=== PATIENT | male | born 1970 | race Caucasian/White ===

== ENCOUNTER 2017-04-06 16:48 | Inpatient (IN) | payer MEDICARE, MEDICAID ==
[2017-04-06] VITALS (8 sets, daily range): BP systolic 121–131; BP diastolic 78–92
[~2017-04-06] VITALS: Ht 177.8 cm; Wt 113.2 kg
[~2017-04-06 16:48] MED LIST: AMOX-291 PO; ASPI-515 PO; ATOR-2 PO; CLOP75TA52 PO; FLUO20CA19 PO; GABA600T2 PO; GLIM1TAB2 PO; HYDR-3307 PO; INSU100V8 SQ; LISI-167 PO; LORA10TA72 PO; METF10002 PO; NITR1PAT26 TD; OMEP40CA6 PO
[2017-04-06] MEDS ORDERED: DIAZ10TA4 PO (17:24)
[2017-04-06] MEDS ORDERED: OMEP-110 PO (17:24)
[2017-04-06] MEDS ORDERED: METH500T97 PO (17:24)
[2017-04-06] MEDS ORDERED: [UNRECOGNIZED DRUG - OTHER] PO (17:24)
[2017-04-06] MEDS ORDERED: NITR0.4T SL (17:24)
[2017-04-06] MEDS ORDERED: PREG150C PO (17:24)
[2017-04-06] MEDS ORDERED: LOSA25TA5 PO (17:24)
[2017-04-06] MEDS ORDERED: FENO160T PO (17:24)
[2017-04-06] MEDS ORDERED: INSU100V8 SQ (17:24)
[2017-04-06] MEDS ORDERED: DULO30CA2 PO (17:24)
[2017-04-06 17:35] LABS: BASOPHILS # (AUTO) 0.08 x10^3/uL (0-0.1); BASOPHILS % (AUTO) 1 % (0-1); EOSINOPHILS # (AUTO) 0.17 x10^3/uL (0-0.4); EOSINOPHILS % (AUTO) 2 % (1-7); LYMPHOCYTES # (AUTO) 2.89 x10^3/uL (1-3.4); LYMPHOCYTES % (AUTO) 31 % (22-44); MD NO; MEAN CORPUSCULAR HEMOGLOBIN 30.4 pg (27.5-34.5); MEAN CORPUSCULAR HGB CONC 33.7 g/dL (33.2-36.2); MEAN CORPUSCULAR VOLUME 90.1 fL (81-97); MEAN PLATELET VOLUME 8.3 fL (7.4-10.4); MONOCYTES # (AUTO) 0.79 x10^3/uL (0.2-0.8); MONOCYTES % (AUTO) 8 % (2-9); NEUTROPHILS # (AUTO) 5.48 x10^3/uL (1.8-6.8); NEUTROPHILS % (AUTO) 58 % (42-75); PLATELET COUNT 283 x10^3/uL (130-400); RED BLOOD COUNT 5.28 x10^6/uL (4.38-5.82); RED CELL DISTRIBUTION WIDTH 13.5 % (9.4-14.8)
[2017-04-06 17:45] LABS: INTERNATIONAL NORMALIZED RATIO 0.98 (0.93-1.1); PROTHROMBIN TIME 10.2 Seconds (9.6-11.5)
[2017-04-06] MEDS: PLEASE ENTER HEIGHT AND WEIGHT MC SCH ×2 (17:54→18:35)
[2017-04-06] MEDS ORDERED: ALTEPLASE 81 MG in VIAL 1 EACH IV ONE (18:00)
[2017-04-06] MEDS ORDERED: ALTEPLASE 9 MG in SYRINGE 1 EA IV ONE (18:00)
[2017-04-06] MEDS ORDERED: SODIUM CHLORIDE FLUSH 10ML SYR IVF PRN (19:00)
[2017-04-06] MEDS ORDERED: LABETALOL 5MG/ML, 20ML IV PRN (19:30)
[2017-04-06] MEDS ORDERED: NICOTINE 21 MG/24 HR PATCH.TD24 TD SCH (19:30)
[2017-04-06] MEDS ORDERED: BISACODYL 10 MG SUPP PR PRN (19:30)
[2017-04-06] MEDS ORDERED: ONDANSETRON 2MG/ML, 2ML IVPush PRN (19:30)
[2017-04-06] MEDS ORDERED: PROMETHAZINE 25 MG/ML, 1ML IM PRN (19:30)
[2017-04-06 20:07] LABS: TROPONIN I < 0.015 ng/mL (0.000-0.045)
[2017-04-06 20:12] LABS: HEMOGLOBIN A1C 6.6 % (4.2-6.3)
[2017-04-06] MEDS ORDERED: LACTULOSE 10 GM/15 ML UDC PO SCH (21:00)
[2017-04-06] MEDS: FAMOTIDINE 20 MG/2 ML IV SCH (21:18)
[2017-04-06] MEDS: NS + 20MEQ KCL 1,000 ML IV SCH (21:18)
[2017-04-06] MEDS ORDERED: MAGNESIUM SULFATE PMX 2GM/50ML 50 ML IV ONE (21:30)
[2017-04-07] VITALS (19 sets, daily range): BP systolic 105–140; BP diastolic 52–85
[2017-04-07 02:16] LABS: TROPONIN I < 0.015 ng/mL (0.000-0.045)
[2017-04-07] MEDS: FAMOTIDINE 20 MG/2 ML IV SCH ×2 (03:05→11:47)
[2017-04-07 04:33] LABS: HCT (SEDRATE) 44.2 % (39.2-51.8)
[2017-04-07 04:37] LABS: BASOPHILS # (AUTO) 0.06 x10^3/uL (0-0.1); BASOPHILS % (AUTO) 1 % (0-1); EOSINOPHILS # (AUTO) 0.18 x10^3/uL (0-0.4); EOSINOPHILS % (AUTO) 2 % (1-7); LYMPHOCYTES # (AUTO) 3.22 x10^3/uL (1-3.4); LYMPHOCYTES % (AUTO) 34 % (22-44); MD NO; MEAN CORPUSCULAR HEMOGLOBIN 30.4 pg (27.5-34.5); MEAN CORPUSCULAR HGB CONC 33.8 g/dL (33.2-36.2); MEAN PLATELET VOLUME 8.4 fL (7.4-10.4); MONOCYTES # (AUTO) 0.85 x10^3/uL (0.2-0.8); MONOCYTES % (AUTO) 9 % (2-9); NEUTROPHILS # (AUTO) 5.05 x10^3/uL (1.8-6.8); NEUTROPHILS % (AUTO) 54 % (42-75); PLATELET COUNT 254 x10^3/uL (130-400); RED BLOOD COUNT 4.93 x10^6/uL (4.38-5.82); RED CELL DISTRIBUTION WIDTH 13.3 % (9.4-14.8)
[2017-04-07 04:44] LABS: CHLORIDE 109 mmol/L (98-107)
[2017-04-07 04:51] LABS: ALANINE AMINOTRANSFERASE 37 U/L (12-78); ALBUMIN 3.1 g/dL (3.4-5.0); ALKALINE PHOSPHATASE 55 U/L (45-117); ANION GAP 6 mmol/L (5-15); BILIRUBIN,TOTAL 0.4 mg/dL (0.2-1.0); C-REACTIVE PROTEIN, QUANT 0.08 mg/dL (0.02-0.49); CHOL/HDL RATIO 3.8; CHOLESTEROL, TOTAL 98 mg/dL (140-239); HDL CHOLESTEROL (DIRECT) 26 mg/dL (40-60); TOTAL PROTEIN 6.5 g/dL (6.4-8.2); TRIGLYCERIDES 96 mg/dL (50-200); VLDL CHOLESTEROL 19 mg/dL (0-25)
[2017-04-07 04:52] LABS: HDL CHOL % 27 % (26-37); LDL CHOLESTEROL,CALCULATED 53 mg/dL (54-169)
[2017-04-07] MEDS: NS + 20MEQ KCL 1,000 ML IV SCH (05:02)
== END 2017-04-07 16:05 | disposition left against medical advice (07) | DRG 61 ==
LOC: ED 18:56 → EDIP 19:00 → ICU 20:20
PROVIDERS: ADMIT Family Medicine; ATTEND Family Medicine
DX: I63.9 Cerebral infarction, unspecified (principal); G93.40 Encephalopathy, unspecified; I11.0 Hypertensive heart disease with heart failure; E83.42 Hypomagnesemia; I50.9 Heart failure, unspecified; G45.9 Transient cerebral ischemic attack, unspecified; I69.354 Hemiplegia and hemiparesis following cerebral infarction affecting left non-dominant side; B19.20 Unspecified viral hepatitis C without hepatic coma; E11.9 Type 2 diabetes mellitus without complications; F15.10 Other stimulant abuse, uncomplicated; F17.210 Nicotine dependence, cigarettes, uncomplicated; I25.10 Atherosclerotic heart disease of native coronary artery without angina pectoris; I25.2 Old myocardial infarction; Z79.02 Long term (current) use of antithrombotics/antiplatelets; Z79.4 Long term (current) use of insulin; Z95.5 Presence of coronary angioplasty implant and graft; Z80.9 Family history of malignant neoplasm, unspecified; Z83.3 Family history of diabetes mellitus
CPT/HCPCS: 36415; 70450; 70551; 80047; 80053; 80061; 83036; 83735; 84100; 84443; 84484; 85025; 85610; 85651; 85730; 86140; 87081; 93005; 93306; 93880; 96365; J2997; J3480; J3475; S0028

== ENCOUNTER 2018-04-20 20:18 | Emergency (ER) | payer MEDICARE, MEDICAID ==
[~2018-04-20] VITALS: Ht 172.7 cm; Wt 108.0 kg
[~2018-04-20 20:18] MED LIST changes: +DIAZ10TA4 PO; +DULO30CA2 PO; +FENO160T PO; -GABA600T2 PO; +GABA600T7 PO; +LOSA25TA25 PO; +METH500T97 PO; +NITR0.4T SL; +OMEP-110 PO; +PREG150C PO; +[UNRECOGNIZED DRUG - OTHER] PO
[2018-04-20] MEDS ORDERED: CARB200T4 PO (21:04)
[2018-04-20] MEDS ORDERED: GABA300C10 PO (21:04)
--- NOTE | 2018-04-20 21:04 | NUR ---
THIS IS A 47 YO MALE WHO PRESENTS TO THE ER AFTER PT'S CAME HOME FROM WORK AT [employer] 1900 TO FIND PT ALTERED. PT IS DROWSY BUT AWAKENS WITH NAME BEING CALLED AND ANSWERS ALL QUESTIONS. PT AO X 4. SKIN PWD. RESP EVEN AND EQAUL. PERRLA. UNABLE TO ASSESS GAZE, PER "THAT'S ALL YOUR GONNA GET". PT HAS A SPINAL DISEASE AND HAS SPASTIC MOVEMENTS OF HIS LEFT ARM, FREQUENT FORGETFULNESS AND HIS GAZE "WANDERS". PER SIGNIFICANT OTHER, PT ALSO USES "VERY LITTE METH" FOR PAIN CONTROL. UPON PT'S ARRIVAL, RN IMMEDIATELY ASKED SJ CRAVEN TO ASSESS PT. SJ CRAVEN HAS BEEN TO BEDSIDE. PT NOT A CODE NEURO AT THIS TIME. PT ON CONT BP, CARDIAC AND O2 MONITORS.
--- NOTE | 2018-04-20 21:11 | NUR ---
PT WOKE UP SUDDENLY AND INSISTED HE HAD TO HAVE A BOWEL MOVEMENT. RN REQUESTED THAT PT USE A BEDPAN OR URINAL. PT REFUSED INSISTING HE GET UP, PT'S LIKEWISE INSISTED AND STATED "I'LL STAY WITH HIM THE WHOLE TIME". RN EDUCATED THEM ON THE RISKS INCLUDING FALLING. PT AND SIGNIFICANT OTHER CONTINUED TO INSIST AND PT WAS WALKED TO RESTROOM. PT HAS A LIMP, PER "THIS IS NORMAL" FOR PT. PT NOW BACK IN [facility]. PT APPEARS MORE AWAKE AND IS CONVERSING WITH THE FRIEND AT THE BEDSIDE.
[2018-04-20 21:15] LABS: FIO2 RA %
[2018-04-20 21:19] LABS: BASOPHILS # (AUTO) 0.15 x10^3/uL (0-0.1); BASOPHILS % (AUTO) 2 % (0-1); EOSINOPHILS # (AUTO) 0.22 x10^3/uL (0-0.4); EOSINOPHILS % (AUTO) 3 % (1-7); LYMPHOCYTES # (AUTO) 2.95 x10^3/uL (1-3.4); LYMPHOCYTES % (AUTO) 36 % (22-44); MD NO; MEAN CORPUSCULAR HEMOGLOBIN 29.2 pg (27.5-34.5); MEAN CORPUSCULAR HGB CONC 33.7 g/dL (33.2-36.2); MEAN CORPUSCULAR VOLUME 86.6 fL (81-97); MEAN PLATELET VOLUME 8.8 fL (7.4-10.4); MONOCYTES # (AUTO) 0.89 x10^3/uL (0.2-0.8); MONOCYTES % (AUTO) 11 % (2-9); NEUTROPHILS % (AUTO) 49 % (42-75); PLATELET COUNT 296 x10^3/uL (130-400); RED BLOOD COUNT 5.51 x10^6/uL (4.38-5.82); RED CELL DISTRIBUTION WIDTH 14.5 % (9.4-14.8)
[2018-04-20 21:29] LABS: ALANINE AMINOTRANSFERASE 31 U/L (12-78); ALBUMIN 3.2 g/dL (3.4-5.0); ANION GAP 8 mmol/L (5-15); CALCIUM 8.2 mg/dL (8.5-10.1); CHLORIDE 104 mmol/L (98-107)
[2018-04-20 21:32] LABS: INTERNATIONAL NORMALIZED RATIO 0.93 (0.93-1.1); PROTHROMBIN TIME 9.9 Seconds (9.6-11.5)
[2018-04-20 21:34] LABS: ALKALINE PHOSPHATASE 160 U/L (45-117); BILIRUBIN,TOTAL 0.3 mg/dL (0.2-1.0); CREATINE KINASE, TOTAL 255 U/L (39-308); TOTAL PROTEIN 7.2 g/dL (6.4-8.2); TROPONIN I < 0.015 ng/mL (0.000-0.045)
--- NOTE | 2018-04-20 21:49 | NUR ---
PT CURRENTLY RESTING ON GURNEY. NAD NOTED. SKIN PWD, RESP EVEN AND EQAUL. PT NOW ABLE TO MAKE EYE CONTACT. PT HAVING COHERENT CONVERSATION WITH FRIEND AT BEDSIDE. PT AO X 4. RESP EVEN AND EQAUL. PT HAS OCCAISIONAL SPASTIC MOVEMENTS OF THE LEFT ARM WHICH IS PT'S BASELINE PER AND FRIEND. PT AND FRIEND AWARE WE ARE WAITING FOR LAB/IMAGING RESULTS. PT PROVIDED WITH [employer] CHIPS WITH OKAY BY SJ CRAVEN. PT ON CONT BP, CARDIAC AND O2 MONITORS. CALL LIGHT WITHIN REACH. WILL CONT TO MONITOR PT.
[2018-04-20] MEDS ORDERED: SODIUM CHLORIDE 0.9% 1,000ML IVBOLUS ONE (22:00)
--- NOTE | 2018-04-20 22:02 | NUR ---
REPORT TO MAAME SALAZAR AND MAAME MCMAHAN.
--- NOTE | 2018-04-20 22:03 | NUR ---
sbar report received from cam arizmendi.
--- NOTE | 2018-04-20 22:14 | NUR ---
pt instructed to provide urine sample, pt up to bathroom with friend at this time.
--- NOTE | 2018-04-20 22:24 | NUR ---
PT BACK TO BED, ALL MONITORS IN PLACE. PT A&OX4, RESPS EVEN AND UNLABORED. 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 PT DENIES PAIN. URINE SENT TO LAB, AWAITING UA/LABS AND DISPO.
[2018-04-20 22:27] LABS: MICROSCOPIC NOT IND
[2018-04-20 22:29] LABS: CULTURE INDICATED? NO
[2018-04-20 22:40] LABS: AMPHETAMINE SCREEN, URINE Positive (Negative); BARBITURATE SCREEN, URINE Negative (Negative); BENZODIAZEPINE SCREEN, URINE Negative (Negative); CANNABINOID SCREEN, URINE Negative (Negative); COCAINE SCREEN, URINE Negative (Negative); METHADONE SCREEN, URINE Negative (Negative); OPIATE SCREEN, URINE Negative (Negative)
--- NOTE | 2018-04-20 22:56 | NUR ---
BG 393 AT THIS TIME. EDMD AT BEDSIDE TO EXPLAIN ALL RESULTS AT THIS TIME. ALL MONITORS IN PLACE. CALL LIGHT WITHIN REACH. PT AOX4. RESPS EVEN AND UNLABORED. NSR ON GAME ENGINEER WITHOUT ECTOPY RATE 80'S.
[2018-04-20] MEDS ORDERED: INSULIN REGULAR 100 UNITS/ML, 3ML VIAL SQ-INSULIN ONE (23:00)
[2018-04-20] MEDS ORDERED: INSULIN LISPRO 100 UNITS/ML, PEN ONE ×2 (23:05→23:12)
[2018-04-20] MEDS ORDERED: INSULIN REGULAR 100 UNITS/ML, 3ML VIAL ONE (23:12)
--- NOTE | 2018-04-20 23:27 | NUR ---
PT MEDICATED PER EMAR WITH 10 UNITS SQ HUMULIN R, MEDICATION AND DOSE VERIFIED BY MAAME MCMAHAN. PT TOLERATED WELL. AWAITING FURTHER ORDERS AT THIS TIME.
--- NOTE | 2018-04-20 23:45 | NUR ---
results and POC explained to pt and family at length by TREE Khan. awaiting further orders at this time.
[2018-04-21 00:09] VITALS: BP 135/88
--- NOTE | 2018-04-21 00:10 | NUR ---
pt given crackers with ok, pt tolerating PO intake with no n/v. per EDMD, no repeat BG necessary at this time. pt and spouse given dc instructions and script. pt educated regarding dc rx metformin. pt a&ox4, neuro intact. resps even and unlabored, nsr on conveyor monitor with no ectopy. pt denies pain. PIV dc'd with tip intact. pt ambulatory with steady gait. provided with wc escort to dc, accompanied by spouse. madison at dc.
== END 2018-04-21 00:11 | disposition home or self-care (01) ==
LOC: ED 21:01
DX: E11.65 Type 2 diabetes mellitus with hyperglycemia (principal); I11.0 Hypertensive heart disease with heart failure; I50.9 Heart failure, unspecified; Z72.9 Problem related to lifestyle, unspecified; Z86.73 Personal history of transient ischemic attack (TIA), and cerebral infarction without residual deficits; R51 Headache
CPT/HCPCS: 36600; 70450; 71045; 80053; 80156; 80307; 81003; 82550; 82803; 82962; 83605; 83735; 84484; 85025; 85610; 87040; 93005; 96360; 96372; 99284; J7030

== ENCOUNTER 2018-05-25 19:41 | Emergency (ER) | payer MEDICARE, MEDICAID ==
[~2018-05-25] VITALS: Ht 175.3 cm; Wt 105.0 kg
[~2018-05-25 19:41] MED LIST changes: +CARB200T4 PO; +GABA300C10 PO
[2018-05-25 20:34] LABS: BASOPHILS # (AUTO) 0.04 x10^3/uL (0-0.1); BASOPHILS % (AUTO) 1 % (0-1); EOSINOPHILS # (AUTO) 0.19 x10^3/uL (0-0.4); EOSINOPHILS % (AUTO) 3 % (1-7); LYMPHOCYTES # (AUTO) 2.96 x10^3/uL (1-3.4); LYMPHOCYTES % (AUTO) 39 % (22-44); MD NO; MEAN CORPUSCULAR HEMOGLOBIN 29.8 pg (27.5-34.5); MEAN CORPUSCULAR VOLUME 87.6 fL (81-97); MEAN PLATELET VOLUME 8.2 fL (7.4-10.4); MONOCYTES # (AUTO) 0.86 x10^3/uL (0.2-0.8); MONOCYTES % (AUTO) 11 % (2-9); NEUTROPHILS # (AUTO) 3.61 x10^3/uL (1.8-6.8); NEUTROPHILS % (AUTO) 47 % (42-75); PLATELET COUNT 306 x10^3/uL (130-400); RED BLOOD COUNT 5.57 x10^6/uL (4.38-5.82); RED CELL DISTRIBUTION WIDTH 14.4 % (9.4-14.8)
[2018-05-25 20:42] LABS: ALANINE AMINOTRANSFERASE 24 U/L (12-78); ALBUMIN 3.3 g/dL (3.4-5.0); ANION GAP 7 mmol/L (5-15); CALCIUM 9.4 mg/dL (8.5-10.1); CHLORIDE 107 mmol/L (98-107)
[2018-05-25 20:45] LABS: ALKALINE PHOSPHATASE 103 U/L (45-117); BILIRUBIN,TOTAL 0.3 mg/dL (0.2-1.0)
--- NOTE | 2018-05-25 21:05 | NUR ---
pt's chart up for recheck
[2018-05-25 21:36] VITALS: BP 119/88
== END 2018-05-25 21:48 | disposition home or self-care (01) ==
LOC: ED 21:00
DX: R07.89 Other chest pain (principal); F15.10 Other stimulant abuse, uncomplicated; E11.9 Type 2 diabetes mellitus without complications; I25.10 Atherosclerotic heart disease of native coronary artery without angina pectoris
CPT/HCPCS: 36415; 71045; 80053; 84484; 85025; 85379; 93005; 99284

== ENCOUNTER 2019-01-12 20:53 | Emergency (ER) | payer MEDICARE, MEDICAID ==
[~2019-01-12] VITALS: Ht 175.3 cm; Wt 89.6 kg
[~2019-01-12 20:53] MED LIST changes: -HYDR-3307 PO; +HYDR-36 PO; -NITR0.4T SL; +NITR0.4T41 SL
[2019-01-12 20:56] VITALS: BP 144/91
--- NOTE | 2019-01-12 21:30 | NUR ---
pt became upset while discussing methamphetamine used as a pain reliever. rn was attempting to educate pt on effect of meth on cv system, specifically with his extensive cardiac history. pt stated, "get outta here. go to hell." pt then eloped and stated, "see ya bitch. my laywer will be calling."
== END 2019-01-12 21:36 | disposition left against medical advice (07) ==
LOC: ED 21:30
DX: M79.641 Pain in right hand (principal)
CPT/HCPCS: 99281

== ENCOUNTER 2019-03-10 15:55 | Emergency (ER) | payer MEDICARE, MEDICAID ==
[~2019-03-10] VITALS: Ht 175.3 cm; Wt 91.4 kg
[~2019-03-10 15:55] MED LIST changes: -GLIM1TAB2 PO; +GLIM1TAB3 PO; +OMEP40CA42 PO; -OMEP40CA6 PO
[2019-03-10 16:18] VITALS: BP 136/90
[2019-03-10] MEDS ORDERED: DEXAMETHASONE 1 MG TABLET PO STA (17:23)
[2019-03-10] MEDS ORDERED: DEXAMETHASONE 4 MG TABLET ONE (17:28)
--- NOTE | 2019-03-10 17:29 | NUR ---
pt medicated per emar.
--- NOTE | 2019-03-10 17:30 | NUR ---
late entry: pt here for sore throat x 1.5 weeks. pt reports that he has difficulty sleeping.
--- NOTE | 2019-03-10 17:40 | NUR ---
Patient/Caregiver given discharge instructions and they have confirmed that they understand the instructions. Patient ambulatory with steady gait.
[2019-03-10] MEDS ORDERED: DEXAMETHASONE 4 MG TABLET PO ONE (18:00)
== END 2019-03-10 17:41 ==
LOC: ED 17:35
DX: J02.8 Acute pharyngitis due to other specified organisms (principal); H66.42 Suppurative otitis media, unspecified, left ear; E11.9 Type 2 diabetes mellitus without complications; I63.9 Cerebral infarction, unspecified; I11.0 Hypertensive heart disease with heart failure; F15.20 Other stimulant dependence, uncomplicated; F17.210 Nicotine dependence, cigarettes, uncomplicated
CPT/HCPCS: 71046; 99283; 99406

== ENCOUNTER 2019-05-02 14:03 | Emergency (ER) | payer MEDICARE, MEDICAID ==
[~2019-05-02] VITALS: Ht 175.3 cm; Wt 86.2 kg
--- NOTE | 2019-05-02 14:36 | NUR ---
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
--- NOTE | 2019-05-02 14:39 | NUR ---
BREAK RN: CONTACT WITH PT. 48 YR OLD MALE HERE WITH C/O "I GOT THIS WEIRD COUGH AND I FEEL LIKE I CANT GET ALL MY AIR. I STARTED COUGHING 2 DAYS AGO AND IT FEELS LIKE SOMETHING ON THE RIGHT SIDE RIPPED" PT ON PHONE. PT WITH INCREASED RR.
--- NOTE | 2019-05-02 14:47 | NUR ---
DR CRAVEN AT BEDSIDE TO EVAL PT
[2019-05-02 15:24] LABS: BASOPHILS # (AUTO) 0.06 x10^3/uL (0-0.1); BASOPHILS % (AUTO) 1 % (0-1); EOSINOPHILS # (AUTO) 0.13 x10^3/uL (0-0.4); EOSINOPHILS % (AUTO) 1 % (1-7); LYMPHOCYTES # (AUTO) 3.64 x10^3/uL (1-3.4); LYMPHOCYTES % (AUTO) 38 % (22-44); MD NO; MEAN CORPUSCULAR HEMOGLOBIN 30.1 pg (27.5-34.5); MEAN CORPUSCULAR HGB CONC 33.9 g/dL (33.2-36.2); MEAN CORPUSCULAR VOLUME 88.7 fL (81-97); MEAN PLATELET VOLUME 9.1 fL (7.4-10.4); MONOCYTES # (AUTO) 1.08 x10^3/uL (0.2-0.8); MONOCYTES % (AUTO) 11 % (2-9); NEUTROPHILS # (AUTO) 4.74 x10^3/uL (1.8-6.8); NEUTROPHILS % (AUTO) 49 % (42-75); PLATELET COUNT 264 x10^3/uL (130-400); RED BLOOD COUNT 5.54 x10^6/uL (4.38-5.82); RED CELL DISTRIBUTION WIDTH 13.4 % (9.4-14.8)
[2019-05-02 15:28] LABS: ALBUMIN 3.1 g/dL (3.4-5.0); ANION GAP 9 mmol/L (5-15); CALCIUM 9.5 mg/dL (8.5-10.1); CHLORIDE 99 mmol/L (98-107)
[2019-05-02] MEDS ORDERED: KETOROLAC 30 MG/1 ML IVPush ONE (15:30)
[2019-05-02 15:33] LABS: D-DIMER 0.77 ug/mlFEU (0.00-0.52); INTERNATIONAL NORMALIZED RATIO 0.89 (0.93-1.1); PROTHROMBIN TIME 9.4 Seconds (9.6-11.5)
[2019-05-02 15:34] LABS: CREATININE 1.01 mg/dL (0.7-1.3); TROPONIN I < 0.015 ng/mL (0.000-0.045)
[2019-05-02] MEDS ORDERED: KETOROLAC 30 MG/1 ML ONE (15:44)
--- NOTE | 2019-05-02 15:48 | NUR ---
STEADY AMBULATION TO BATHROOM. CRITICAL LAB REPORTED TO SJ CRAVEN
[2019-05-02 16:06] VITALS: BP 120/79
--- NOTE | 2019-05-02 16:10 | NUR ---
PATIENT VERY FRUSTRATED WITH THAT TREATMENT NEEDED IV THERAPY. SJ CRAVEN NOTIFIED. PT REFUSING CARE AND LEFT AMA.
--- NOTE | 2019-05-02 16:20 | NUR ---
HOME HEALTH NURSE AND ERMD AWARE
[2019-05-02] MEDS ORDERED: SODIUM CHLORIDE 0.9% 1,000ML IVBOLUS ONE (16:30)
== END 2019-05-02 16:21 | disposition left against medical advice (07) ==
LOC: ED 15:22
DX: R06.82 Tachypnea, not elsewhere classified (principal); R07.81 Pleurodynia; I11.0 Hypertensive heart disease with heart failure; I50.9 Heart failure, unspecified; E11.9 Type 2 diabetes mellitus without complications; I25.10 Atherosclerotic heart disease of native coronary artery without angina pectoris; F17.200 Nicotine dependence, unspecified, uncomplicated; Z86.73 Personal history of transient ischemic attack (TIA), and cerebral infarction without residual deficits; Z98.61 Coronary angioplasty status; Z90.89 Acquired absence of other organs
CPT/HCPCS: 36415; 71045; 80048; 82040; 83880; 84484; 85025; 85379; 85610; 85730; 93005; 99284

== ENCOUNTER 2019-10-12 16:16 | Emergency (ER) | payer MEDICAID, MEDICARE ==
[~2019-10-12] VITALS: Ht 175.3 cm; Wt 76.5 kg
[~2019-10-12 16:16] MED LIST changes: -GLIM1TAB3 PO; +GLIM1TAB7 PO; +HYDR-3246 PO; -HYDR-36 PO
[2019-10-12 17:04] LABS: BASOPHILS # (AUTO) 0.05 x10^3/uL (0-0.1); BASOPHILS % (AUTO) 1 % (0-1); EOSINOPHILS # (AUTO) 0.09 x10^3/uL (0-0.4); EOSINOPHILS % (AUTO) 1 % (1-7); LYMPHOCYTES # (AUTO) 4.41 x10^3/uL (1-3.4); LYMPHOCYTES % (AUTO) 43 % (22-44); MD NO; MEAN CORPUSCULAR HEMOGLOBIN 29.6 pg (27.5-34.5); MEAN CORPUSCULAR HGB CONC 33.5 g/dL (33.2-36.2); MEAN CORPUSCULAR VOLUME 88.1 fL (81-97); MEAN PLATELET VOLUME 8.1 fL (7.4-10.4); MONOCYTES # (AUTO) 1.12 x10^3/uL (0.2-0.8); MONOCYTES % (AUTO) 11 % (2-9); NEUTROPHILS % (AUTO) 45 % (42-75); PLATELET COUNT 312 x10^3/uL (130-400); RED BLOOD COUNT 5.35 x10^6/uL (4.38-5.82); RED CELL DISTRIBUTION WIDTH 13.6 % (9.4-14.8)
[2019-10-12 17:16] LABS: ANION GAP 6 mmol/L (5-15); CALCIUM 9.1 mg/dL (8.5-10.1); CHLORIDE 100 mmol/L (98-107); CREATININE 0.87 mg/dL (0.7-1.3)
[2019-10-12 17:27] VITALS: BP 122/88
[2019-10-12] MEDS ORDERED: LIDOCAINE 1%-EPI 1:100K, 20ML ONE (17:54)
[2019-10-12] MEDS ORDERED: LIDOCAINE-MPF 1%, 5ML INFIL ONE (18:00)
== END 2019-10-12 18:35 | disposition home or self-care (01) ==
LOC: ED 17:51
DX: L02.414 Cutaneous abscess of left upper limb (principal); I11.0 Hypertensive heart disease with heart failure; I50.9 Heart failure, unspecified; I25.10 Atherosclerotic heart disease of native coronary artery without angina pectoris; F17.200 Nicotine dependence, unspecified, uncomplicated; Z86.73 Personal history of transient ischemic attack (TIA), and cerebral infarction without residual deficits; Z90.89 Acquired absence of other organs; Z98.61 Coronary angioplasty status; W22.8XXA Striking against or struck by other objects, initial encounter; Y93.89 Activity, other specified; Y92.89 Other specified places as the place of occurrence of the external cause; Y99.8 Other external cause status
CPT/HCPCS: 10060; 36415; 80048; 82040; 85025; 99284

== ENCOUNTER 2019-10-23 11:11 | Emergency (ER) | payer MEDICARE, MEDICAID ==
[~2019-10-23] VITALS: Ht 175.3 cm; Wt 83.6 kg
[2019-10-23] MEDS ORDERED: LIDOCAINE-MPF 1%, 5ML INFIL ONE (12:00)
[2019-10-23 12:08] LABS: BASOPHILS # (AUTO) 0.05 x10^3/uL (0-0.1); BASOPHILS % (AUTO) 0 % (0-1); EOSINOPHILS # (AUTO) 0.03 x10^3/uL (0-0.4); EOSINOPHILS % (AUTO) 0 % (1-7); LYMPHOCYTES # (AUTO) 3.29 x10^3/uL (1-3.4); LYMPHOCYTES % (AUTO) 29 % (22-44); MD NO; MEAN CORPUSCULAR HEMOGLOBIN 29.9 pg (27.5-34.5); MEAN CORPUSCULAR HGB CONC 33.7 g/dL (33.2-36.2); MEAN PLATELET VOLUME 8.2 fL (7.4-10.4); MONOCYTES # (AUTO) 1.18 x10^3/uL (0.2-0.8); MONOCYTES % (AUTO) 11 % (2-9); NEUTROPHILS # (AUTO) 6.77 x10^3/uL (1.8-6.8); NEUTROPHILS % (AUTO) 60 % (42-75); PLATELET COUNT 357 x10^3/uL (130-400); RED BLOOD COUNT 5.39 x10^6/uL (4.38-5.82); RED CELL DISTRIBUTION WIDTH 13.9 % (9.4-14.8)
[2019-10-23 12:15] LABS: ALBUMIN 3.1 g/dL (3.4-5.0); ANION GAP 7 mmol/L (5-15); CALCIUM 9.4 mg/dL (8.5-10.1); CHLORIDE 96 mmol/L (98-107); CREATININE 1.01 mg/dL (0.7-1.3)
--- NOTE | 2019-10-23 12:35 | NUR ---
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
[2019-10-23] MEDS ORDERED: duloxetine PO (12:50)
[2019-10-23] MEDS ORDERED: ASPI-496 PO (12:50)
--- NOTE | 2019-10-23 12:57 | NUR ---
PT C/O LEFT ARM PAIN AND SWELLING SINCE YESTERDAY WITH MULTIPLE SCABS TO RIGHT FOREARM WITH REDNESS. PT INJECTS METH WITH REPORTED LAST USE 4 DAYS AGO. PT ALSO REPORTS BILATERALLY TO BOTH LEGS, NO WOUNDS NOTED OR REDNESSS. PT DENIES CP OR SOB. CHART UP FOR .
[2019-10-23] MEDS ORDERED: CEFTRIAXONE PMX 1GM/50ML 50 ML ONE (13:12)
[2019-10-23] MEDS ORDERED: LIDOCAINE-MPF 1%, 5ML ONE (13:12)
[2019-10-23] MEDS ORDERED: INSULIN SINGLE DOSE, ER ONE (13:14)
[2019-10-23] MEDS ORDERED: INSULIN REGULAR 100 UNITS/ML, 3ML VIAL SQ-INSULIN ONE (13:30)
[2019-10-23] MEDS ORDERED: SODIUM CHLORIDE 0.9% 1,000ML IVBOLUS ONE (13:30)
[2019-10-23] MEDS ORDERED: CEFTRIAXONE PMX 1GM/50ML 50 ML IVPB ONE (13:30)
[2019-10-23] MEDS ORDERED: SODIUM CHLORIDE FLUSH 10ML SYR IVF ONE (13:30)
--- NOTE | 2019-10-23 14:01 | NUR ---
ANTIBIOTICS STARTED AFTER BLOOD CULTURES X 2 WERE DRAWN.
[2019-10-23 14:32] VITALS: BP 131/86
[2019-12-31] MEDS ORDERED: INSU100I11 SQ-INSULIN (14:21)
[2019-12-31] MEDS ORDERED: AMIO200T42 PO (14:21)
[2019-12-31] MEDS ORDERED: AMOX1TAB12 PO (14:21)
[2019-12-31] MEDS ORDERED: APIX5TAB PO (14:21)
[2019-12-31] MEDS ORDERED: DOXY100T PO (14:21)
[2019-12-31] MEDS ORDERED: MAGN400T50 PO (14:21)
[2019-12-31] MEDS ORDERED: INSU100I13 SQ-INSULIN (14:21)
[2019-12-31] MEDS ORDERED: PHOS250T3 PO (14:21)
== END 2019-10-23 14:38 | disposition home or self-care (01) ==
LOC: ED 12:11
DX: L02.414 Cutaneous abscess of left upper limb (principal); E10.65 Type 1 diabetes mellitus with hyperglycemia; I11.0 Hypertensive heart disease with heart failure; I50.9 Heart failure, unspecified; I25.10 Atherosclerotic heart disease of native coronary artery without angina pectoris; F17.200 Nicotine dependence, unspecified, uncomplicated; Z86.73 Personal history of transient ischemic attack (TIA), and cerebral infarction without residual deficits; Z90.89 Acquired absence of other organs; Z98.61 Coronary angioplasty status
CPT/HCPCS: 36415; 80048; 82040; 82962; 85025; 87040; 96365; 99284; J0696; J1815; J7030

== ENCOUNTER 2019-10-25 17:09 | Emergency (ER) | payer MEDICAID, MEDICARE ==
[~2019-10-25] VITALS: Ht 175.3 cm; Wt 79.8 kg
[~2019-10-25 17:09] MED LIST changes: +ASPI-496 PO; +duloxetine PO
[2019-10-25 17:10] VITALS: BP 140/93
--- NOTE | 2019-10-25 17:49 | NUR ---
TO [facility] FROM LOBBY
[2019-10-25] MEDS ORDERED: NEOSPORIN OINT. PKT 1 PACKET ONE (17:58)
[2019-10-25] MEDS ORDERED: LIDOCAINE 1%-EPI 1:100K, 20ML ONE (18:07)
== END 2019-10-25 18:53 | disposition home or self-care (01) ==
LOC: ED 18:01
DX: Z48.01 Encounter for change or removal of surgical wound dressing (principal); I11.0 Hypertensive heart disease with heart failure; I50.9 Heart failure, unspecified; I25.10 Atherosclerotic heart disease of native coronary artery without angina pectoris; F17.200 Nicotine dependence, unspecified, uncomplicated; Z90.89 Acquired absence of other organs; Z98.61 Coronary angioplasty status; Z86.73 Personal history of transient ischemic attack (TIA), and cerebral infarction without residual deficits
CPT/HCPCS: 99281

== ENCOUNTER 2019-12-18 05:29 | Emergency (ER) | payer MEDICARE, MEDICAID ==
[~2019-12-18] VITALS: Ht 175.3 cm; Wt 65.0 kg
--- NOTE | 2019-12-18 05:47 | NUR ---
BIBA. Alert, answering questions appropriately. States sudden onset L sided chest pain radiating to back beginning at approx 2000 last night (12/17/2019). States worsening pain with movement, denies alleviating factors. Given nitro x1, 324 asa, and 100 mcg fentanyl by EMS with no effect. Pt continues to c/o 10/10 pain upon arrival to ED. NSR noted on monitor. BP equal on bilateral upper extremities (R 130/76, L 128/73). Denies SOB. Denies fever/chills. Denies abd pain/N/V/D. Per EMS, glucometer unable to read BS d/t too high of level. Pt states hx DM, taking insulin and metformin as perscribed, but home glucometer has been broken x days, pt unable to check sugar. Able to ambulate from EMS to ED stretcher independently, steady gait. ED MD at bedside upon arrival.
[2019-12-18] MEDS ORDERED: MORPHINE SULFATE 4 MG/ML, 1ML ONE (05:55)
[2019-12-18] MEDS ORDERED: SODIUM CHLORIDE 0.9% 1,000ML IVBOLUS ONE (06:00)
[2019-12-18] MEDS ORDERED: SODIUM CHLORIDE FLUSH 10ML SYR IVF ONE (06:00)
[2019-12-18] MEDS ORDERED: MORPHINE SULFATE 4 MG/ML, 1ML IVPush PRN (06:00)
[2019-12-18 06:19] LABS: ALANINE AMINOTRANSFERASE 38 U/L (12-78); ALBUMIN 2.9 g/dL (3.4-5.0); ANION GAP 9 mmol/L (5-15); CALCIUM 8.5 mg/dL (8.5-10.1); CHLORIDE 99 mmol/L (98-107)
[2019-12-18 06:24] LABS: ALKALINE PHOSPHATASE 147 U/L (45-117); BILIRUBIN,TOTAL 0.3 mg/dL (0.2-1.0); CREATININE 0.88 mg/dL (0.7-1.3); TOTAL PROTEIN 7.1 g/dL (6.4-8.2); TROPONIN I < 0.015 ng/mL (0.000-0.045)
[2019-12-18 06:25] LABS: ACETONE, SERUM Small (20mg/dL) (Negative)
[2019-12-18] MEDS ORDERED: INSULIN REGULAR 100 UNITS/ML, 3ML VIAL SQ-INSULIN ONE (06:30)
[2019-12-18 06:34] LABS: BASOPHILS # (AUTO) 0.03 x10^3/uL (0-0.1); BASOPHILS % (AUTO) 0 % (0-1); EOSINOPHILS # (AUTO) 0.03 x10^3/uL (0-0.4); EOSINOPHILS % (AUTO) 0 % (1-7); LYMPHOCYTES % (AUTO) 30 % (22-44); MD NO; MEAN CORPUSCULAR HEMOGLOBIN 29.6 pg (27.5-34.5); MEAN CORPUSCULAR HGB CONC 33.8 g/dL (33.2-36.2); MEAN PLATELET VOLUME 8.1 fL (7.4-10.4); MONOCYTES # (AUTO) 1.13 x10^3/uL (0.2-0.8); MONOCYTES % (AUTO) 15 % (2-9); NEUTROPHILS # (AUTO) 4.31 x10^3/uL (1.8-6.8); NEUTROPHILS % (AUTO) 55 % (42-75); PLATELET COUNT 232 x10^3/uL (130-400); RED BLOOD COUNT 5.16 x10^6/uL (4.38-5.82); RED CELL DISTRIBUTION WIDTH 13.5 % (9.4-14.8)
[2019-12-18] MEDS ORDERED: INSULIN SINGLE DOSE, ER ONE (06:37)
[2019-12-18 06:41] VITALS: BP 123/77
--- NOTE | 2019-12-18 07:00 | NUR ---
Ambulated to bathroom independently, slow/steady gait. Hx of R sided weakness with limp d/t previous CVA
[2019-12-18] MEDS: SODIUM CHLORIDE FLUSH 10ML SYR IVF PRN ×2 (08:01→08:04)
--- NOTE | 2019-12-18 08:09 | NUR ---
F/U BLOOD GLUCOS 461. YUSUF ZHOU AWARE, AWAITING ORDERS.
[2019-12-18 08:37] LABS: MICROSCOPIC NOT IND
[2019-12-18] MEDS ORDERED: morphine SULFATE 10 MG/ML, 1ML IV PRN (10:00)
[2019-12-18] MEDS ORDERED: NITROGLYCERIN 0.4 MG BOTTLE (25 TABS) SL PRN (10:00)
[2019-12-18] MEDS ORDERED: NITROGLYCERIN SINGLE TAB 0.4 MG SL PRN (10:00)
[2019-12-18] MEDS ORDERED: NITROGLYCERIN 0.4 MG/SPRAY SL PRN (10:00)
[2019-12-18] MEDS ORDERED: ONDANSETRON 2MG/ML, 2ML IV PRN (10:00)
[2019-12-18 10:17] LABS: CHOL/HDL RATIO 5.7; LDL/HDL RATIO 2.2 (0.5-3.0)
[2019-12-18] MEDS ORDERED: ASPIRIN 325 MG TABLET EC PO ONE (11:00)
[2019-12-18] MEDS ORDERED: ENOXAPARIN 40 MG/0.4 ML SQ SCH (11:00)
[2019-12-18] MEDS ORDERED: SODIUM CHLORIDE FLUSH 10ML SYR IVF SCH (21:00)
[2019-12-19] MEDS ORDERED: ASPIRIN 325 MG TABLET EC PO SCH (06:00)
[2019-12-31] MEDS ORDERED: AMIO200T42 PO (14:21)
[2019-12-31] MEDS ORDERED: INSU100I13 SQ-INSULIN (14:21)
[2019-12-31] MEDS ORDERED: PHOS250T3 PO (14:21)
[2019-12-31] MEDS ORDERED: AMOX1TAB12 PO (14:21)
[2019-12-31] MEDS ORDERED: APIX5TAB PO (14:21)
[2019-12-31] MEDS ORDERED: MAGN400T50 PO (14:21)
[2019-12-31] MEDS ORDERED: INSU100I11 SQ-INSULIN (14:21)
[2019-12-31] MEDS ORDERED: DOXY100T PO (14:21)
== END 2019-12-18 09:38 ==
LOC: ED 06:09 → EDIP 06:39 → UNDOADMIN 06:39 → 5SO 08:38 → EDIP 08:38 → UNDODISIN 09:38 → ED 09:38
DX: R07.89 Other chest pain (principal); M54.5 Low back pain; R42 Dizziness and giddiness; R51 Headache; E11.9 Type 2 diabetes mellitus without complications; R94.31 Abnormal electrocardiogram [ECG] [EKG]; F17.200 Nicotine dependence, unspecified, uncomplicated
CPT/HCPCS: 36415; 71045; 80053; 80061; 81003; 82010; 82800; 82962; 83036; 83735; 83880; 84100; 84484; 85025; 93005; 96361; 96374; 99285; J1815; J2270; J7030; G0378

== ENCOUNTER 2020-05-06 05:56 | Emergency (ER) | payer MEDICARE, MEDICAID ==
[~2020-05-06] VITALS: Ht 175.3 cm; Wt 65.1 kg
[~2020-05-06 05:56] MED LIST changes: +AMIO200T42 PO; +AMOX1TAB12 PO; +APIX5TAB PO; -ASPI-515 PO; +ASPI-963 PO; +DOXY100T PO; -HYDR-3246 PO; +HYDR-3248 PO; +INSU100I11 SQ-INSULIN; +INSU100I13 SQ-INSULIN; +MAGN400T50 PO; +PHOS250T3 PO
[2020-05-06 06:01] VITALS: BP 112/77
[2020-05-06] MEDS ORDERED: KETOROLAC 30 MG/1 ML ONE (06:24)
[2020-05-06] MEDS ORDERED: KETOROLAC 30 MG/1 ML IM ONE (06:30)
== END 2020-05-06 06:47 | disposition home or self-care (01) ==
LOC: ED 06:37
DX: E10.40 Type 1 diabetes mellitus with diabetic neuropathy, unspecified (principal); M79.672 Pain in left foot; M79.671 Pain in right foot; I25.10 Atherosclerotic heart disease of native coronary artery without angina pectoris; I11.0 Hypertensive heart disease with heart failure; I50.9 Heart failure, unspecified; Z86.73 Personal history of transient ischemic attack (TIA), and cerebral infarction without residual deficits
CPT/HCPCS: 96372; 99283; J1885